=== PATIENT | male | born 1980 | race Hispanic/Latino ===

== ENCOUNTER 2022-03-17 17:49 | Emergency (ER) | payer SELFPAY ==
--- NOTE | 2022-03-17 18:13 | ED_ITS ---
HPI - Wound/Laceration General Stated Complaint: pain in lower body Time Seen by Provider: 03/17/22 18:13 Source: patient Mode of arrival: ambulatory Limitations: no limitations History of Present Illness HPI narrative: this is a 41-year-old gentleman and had grounds restoration specialist utilized, patient through grounds restoration specialist states that he has been having some drainage and discomfort in the left groin area works outdoors and wears a harness that has been irritating this area currently there is an area of warmth and tenderness with some mild discharge with some no current fever chills no shortness of breath no abdominal pain no dysuria. Onset (ago): day(s) Location: other ( Groin area) Review of Systems Review of Systems: All systems reviewed & are unremarkable except as noted in HPI and below PMFSH Past Medical History Medical History HLD (hyperlipidemia) Exam Const: General: no acute distress Orientation/consciousness: patient oriented x3 HENMT: Head: normal to inspection Eyes: Conjunctivae: conjunctivae normal Pupils: Equal, round and reactive pupils present Neck: Neck: normal visual inspection, no lymphadenopathy and no meningeal signs Chest: Chest palpation & inspection: normal inspection of the chest Resp: Effort & Inspection: normal respiratory effort Cardio: Rate: regular rate Rhythm: regular rhythm GI: GI Palp: Yes Soft to palpation Back/Spine/Pelvis: Back: no CVA tenderness Skin: Other: area of erythema and swelling and tenderness and warmth to the left groin area Neuro: General: patient oriented x3 and moves all extremities Extrem: General: normal to inspection Psych: Mental Status: mental status grossly normal Course Course Emergency Course: grounds restoration specialist used to interview patient patient having discharge and erythema to the left groin area and will give 1g IM ceftriaxone and will send antibiotics to his pharmacy. Critical Care Time Critical Care Time Critical Care Time: No Discharge Plan Discharge Clinical Impression: Cellulitis Qualifiers: Site of cellulitis: trunk Site of cellulitis of trunk: groin Qualified Code(s): L03.314 - Cellulitis of groin Abscess of skin or subcutaneous tissue Qualifiers: Site of cutaneous abscess: trunk Site of cutaneous abscess of trunk: groin Qualified Code(s): L02.214 - Cutaneous abscess of groin Patient Disposition: Home, Self-Care Condition: Stable Instructions: Antibiotic Form, Cellulitis (ED), Abscess (ED) Additional Instructions: Take medicine as prescribed and if symptoms persist or worsen should follow up with primary care physician. Prescriptions: New amoxicillin-pot clavulanate [Augmentin] 500-125 mg tablet 1 tablet PO TID 10 Days Qty: 30 RF: 0 tramadol [Ultram] 50 mg tablet 50 mg PO Q6H PRN (Reason: pain) Qty: 20 RF: 0 Follow-up/Referrals: UNKNOWN,DOCTOR [Primary Care Provider] - Time of Disposition: 18:20
[2022-03-17 18:15] VITALS: BP 155/107; PULSE 97; RESP 20; TEMP 36.9; O2SAT 97
[2022-03-17] MEDS: cefTRIAXone 1 GM VIAL IM (18:27)
[2022-03-17] MEDS: LIDOCAINE HCL 1% LOCAL INJ 10 ML VIAL (18:27)
[2022-03-17 18:48] VITALS: BP 137/104; PULSE 124; RESP 20; TEMP 36.7; O2SAT 96
== END 2022-03-17 18:51 | disposition home or self-care (01) ==
PROVIDERS: Emergency Provider Emergency Medicine
DX: L03.314 Cellulitis of groin (principal); L02.214 Cutaneous abscess of groin
CPT/HCPCS: 96372; 99283; J0696